=== PATIENT | female | born 1975 | race Caucasian/White ===

== ENCOUNTER 2017-03-28 21:49 | Emergency (ER) | payer OTHER ==
[2017-06-07] MEDS ORDERED: KLONOPIN TAB 00.5 MG PO (08:52)
[2017-06-07] MEDS ORDERED: TENORMIN 25 MG25 MG PO (08:52)
[2017-06-07] MEDS ORDERED: GABAPENTIN300 MG PO (08:53)
[2017-06-07] MEDS ORDERED: PERCOCET 7.5-31 EACH PO (13:22)
== END 2017-03-28 23:50 | disposition left against medical advice (07) ==
LOC: ER1 21:49
DX: Z53.21 Procedure and treatment not carried out due to patient leaving prior to being seen by health care provider (principal)

== ENCOUNTER 2017-04-09 00:02 | Emergency (ER) | payer OTHER ==
[2017-06-07] MEDS ORDERED: TENORMIN 25 MG25 MG PO (08:52)
[2017-06-07] MEDS ORDERED: KLONOPIN TAB 00.5 MG PO (08:52)
[2017-06-07] MEDS ORDERED: GABAPENTIN300 MG PO (08:53)
[2017-06-07] MEDS ORDERED: PERCOCET 7.5-31 EACH PO (13:22)
== END 2017-04-09 03:24 | disposition home or self-care (01) ==
LOC: ER1 00:02
DX: R51 Headache (principal); Z91.040 Latex allergy status
CPT/HCPCS: 96372; 99283; J1200; J1885

== ENCOUNTER → 2017-05-20 | Outpatient (CLI) | payer OTHER ==
[~2017-05-20] MED LIST: GABAPENTIN300 MG PO; KLONOPIN TAB 00.5 MG PO; PERCOCET 7.5-31 EACH PO; TENORMIN 25 MG25 MG PO
== END ==
LOC: KOH-I 11:45
DX: M25.562 Pain in left knee (principal); M25.462 Effusion, left knee
CPT/HCPCS: 73721

== ENCOUNTER → 2020-12-18 | Outpatient (CLI) | payer OTHER ==
[~2020-12-18] MED LIST changes: +AMLODIPINE BESYL5 MG PO; +ASPIRIN EC81 MG PO; +ASPIRIN325 MG PO; +AUGMENTIN 875-1 EACH PO; +BACITRACIN3.5 GM TOP; +BACTROBAN OINT22 GM TOP; +BROMPHENIR-PSE118 ML PO; +BUMEX 1MG TABLET1 MG PO; +CLEOCIN HCL150 MG PO; +CRESTOR10 MG PO; +GABAPENTIN800 MG PO; +GLUCOTROL5 MG PO; +IBUPROFEN800 MG PO; +IPRAT-ALBUT 0.5-3 ML INH; +KEFLEX500 MG PO; +KLONOPIN0.5 MG PO; +LODINE CAP 300300 MG PO; +LOPRESSOR50 MG PO; +MEDROL DOSEPAK 24 MG PO; +METOPROLOL TART25 MG PO; +PEPCID20 MG PO; +PERCOCET 10-321 EACH PO; +PLAVIX75 MG PO; +ROBITUSSIN AC480 ML PO; +SYNTHROID 150150 MCG PO; +TOPAMAX50 MG PO; +VOLTAREN EC 5050 MG PO; +ZESTRIL 40 MG T40 MG PO; +ZITHROMAX250 MG PO; +ZITHROMAX500 MG PO
== END ==
LOC: KOH-I 12-17 10:30
DX: R10.2 Pelvic and perineal pain (principal); E04.1 Nontoxic single thyroid nodule
CPT/HCPCS: 74176; 76536

== ENCOUNTER → 2020-12-19 | Outpatient (CLI) | payer OTHER | LOC: KOH-I 10:24 | DX: M79.671 Pain in right foot (principal) | CPT/HCPCS: 73630 ==

== ENCOUNTER → 2020-12-25 | Outpatient (CLI) | payer OTHER | LOC: EMI 11:00 | DX: S86.011A Strain of right Achilles tendon, initial encounter (principal); M89.8X7 Other specified disorders of bone, ankle and foot; X58.XXXA Exposure to other specified factors, initial encounter | CPT/HCPCS: 73718 ==

== ENCOUNTER → 2021-01-10 | Outpatient (CLI) | payer OTHER | LOC: NM 11-13 09:00 | DX: R11.0 Nausea (principal) | CPT/HCPCS: 78264; A9541 ==

== ENCOUNTER → 2021-01-17 | Outpatient (CLI) | payer OTHER | LOC: US 08:43 | PROC: 0GBG3ZX Excision of Left Thyroid Gland Lobe, Percutaneous Approach, Diagnostic (ICD-10-PCS; principal; 2021-01-17) | DX: E04.1 Nontoxic single thyroid nodule (principal) ==

== ENCOUNTER → 2021-02-05 | Outpatient (CLI) | payer OTHER | LOC: KOH-I 12:57 | DX: M95.8 Other specified acquired deformities of musculoskeletal system (principal); M94.262 Chondromalacia, left knee; M25.462 Effusion, left knee | CPT/HCPCS: 73721 ==

== ENCOUNTER 2021-06-17 23:02 | Emergency (ER) | payer OTHER | END 2021-06-18 00:30 | disposition home or self-care (01) | LOC: ER1 23:02 | DX: G89.18 Other acute postprocedural pain (principal); M25.571 Pain in right ankle and joints of right foot; R79.1 Abnormal coagulation profile; I10 Essential (primary) hypertension; F17.210 Nicotine dependence, cigarettes, uncomplicated; Z90.710 Acquired absence of both cervix and uterus; Z91.041 Radiographic dye allergy status | CPT/HCPCS: 85379; 85610; 85730; 96372; 99283; J1650 ==

== ENCOUNTER → 2021-06-18 | Outpatient (CLI) | payer OTHER | LOC: US 10:39 | DX: M79.661 Pain in right lower leg (principal); R79.89 Other specified abnormal findings of blood chemistry; R93.6 Abnormal findings on diagnostic imaging of limbs | CPT/HCPCS: 93971 ==

== ENCOUNTER → 2021-06-23 | Outpatient (CLI) | payer OTHER | LOC: US 14:57 | DX: M79.661 Pain in right lower leg (principal); I82.451 Acute embolism and thrombosis of right peroneal vein | CPT/HCPCS: 93971 ==

== ENCOUNTER → 2021-10-27 | Outpatient (CLI) | payer OTHER | LOC: KOH-I 13:45 | DX: M95.8 Other specified acquired deformities of musculoskeletal system (principal); M21.6X1 Other acquired deformities of right foot; M72.2 Plantar fascial fibromatosis | CPT/HCPCS: 73721 ==

== ENCOUNTER 2022-04-28 12:10 | Emergency (ER) | payer OTHER ==
[2022-04-28 13:33] LABS: HEMOGLOBIN 14.5 gm/dl (12.3-15.3); RED BLOOD COUNT 4.87 M/UL (4.00-5.10); WHITE BLOOD COUNT 8.9 K/UL (4.5-11.0)
[2022-04-28 14:05] LABS: BUN/CREATININE RATIO 19 (0-10)
== END 2022-04-28 17:10 | disposition left against medical advice (07) ==
LOC: ER1 12:10
PROVIDERS: Nurse Practitioner
DX: R00.2 Palpitations (principal); R07.9 Chest pain, unspecified; I10 Essential (primary) hypertension; F17.210 Nicotine dependence, cigarettes, uncomplicated; Z86.718 Personal history of other venous thrombosis and embolism; Z91.041 Radiographic dye allergy status
CPT/HCPCS: 71045; 80053; 80307; 81001; 82550; 82553; 83735; 83880; 84100; 84439; 84443; 84484; 85025; 85379; 86140; 93005; 99283

== ENCOUNTER → 2022-07-21 | Outpatient (CLI) | payer OTHER | LOC: HEART 5 14:51 | DX: R94.31 Abnormal electrocardiogram [ECG] [EKG] (principal); R06.02 Shortness of breath | CPT/HCPCS: 93306 ==